=== PATIENT | male | born 1950 | race Caucasian/White ===

== ENCOUNTER 2016-07-25 17:28 | Day surgery (SDC) | payer OTHER, MEDICARE ==
[2016-07-25] MEDS ORDERED: IOPAMIDOL 370 (76%) 100 ML VIAL IV ONE ×2 (17:29)
[2016-07-25 18:10] LABS: ABSOLUTE NEUTROPHIL COUNT 4.2 K/mm3 (1.8-7.7); BASO % 0.4 % (0.2-1.0); EOS # 0.9 (0.0-0.5); EOS % 11.9 % (0.9-2.9); HEMOGLOBIN 13.3 gm/l (14.0-18.0); IMM NEUT% 0.4 % (0-1); LYMPH # 1.9 (1.0-4.8); LYMPH % 25.1 % (15-45); MEAN CELL VOLUME 87.4 fl (80.0-94.0); MEAN CORPUSCULAR HEMOGLOBIN 28.4 pg (27.0-31.0); MEAN CORPUSCULAR HGB CONC 32.4 g/dl (33.0-37.0); MEAN PLATELET VOLUME 8.9 fl (7.4-10.4); MONO # 0.6 (0.0-0.8); MONO % 8.2 % (4-12); PLATELET COUNT 266 K/mm3 (130-400); RED CELL DISTRIBUTION WIDTH 13.9 % (11.5-14.5)
[2016-07-25 18:21] LABS: INR 1.04; PROTHROMBIN TIME 10.9 SECONDS (9.3-11.4)
[2016-07-25 18:31] LABS: ALB/GLOB RATIO 1.3 (>1.0)
--- NOTE | 2016-07-25 19:39 | CT ---
[facility] Exam: CT head without contrast, cranial CTA and neck CTA Comparison:None Clinical history:Unable to swallow for the last 24 hours. Past history of CVA. Procedure: Helical CT using multidetector technique was applied to the head without contrast. Helical CT was then performed from the top of the head through the aortic arch during rapid intravenous administration of 90 cc of Isovue-370. MIP reconstructions were obtained on the CT scanner. An automated dose reduction technique was utilized to patient dose. Findings-CT head (without contrast): There is no shift of the midline structures. Atrophy is present. There is no mass, mass effect or hemorrhage. Cisterns are uneffaced. There is a large old right cerebellar infarct. Visualized paranasal sinuses and mastoid air cells are clear. There is no fracture. CTA head: Distal internal carotid arteries are minimally atherosclerotic and symmetric. The anterior and middle cerebral arteries are within normal limits. There is no anterior communicating artery aneurysm. The left vertebral artery is dominant. The distal right vertebral artery is occluded. The basilar artery is some mildly atherosclerotic and there are tandem less than 50% stenoses. The superior cerebellar arteries are intact. The right posterior cerebral artery arises from the basilar artery and the left arises from the anterior circulation which is a common normal variant. Posterior communicating arteries are not clearly identified. There is no aneurysm or vascular malformation. There is no filling defect or suspicious segmental narrowing within the cerebral arteries. CTA NECK: Aortic arch is normal caliber. There is a normal 3 great vessel arrangement. The origins of the great vessels are widely patent. The subclavian arteries show mild atherosclerosis but are more widely patent. The origins of the vertebral arteries are widely patent. The left vertebral artery is dominant. As stated above, the distal most aspect of the right vertebral artery is occluded. The common carotid arteries are symmetric. The carotid bifurcations are widely patent. There is minimal atherosclerosis of the internal carotid arteries. There is no stenosis or dissection. The visualized upper lobes are clear. The esophagus is abnormally dilated and there is a small air-fluid level. Thyroid glands submandibular glands and parotid glands are within normal limits. There is straightening of the normal cervical lordosis and severe degenerative disc disease at C5-6 and C6-7. Multilevel central canal stenosis and bony foraminal larynx is present. Multiple dental fillings are present. There is mild diffuse mucoperiosteal thickening of the left maxillary sinus Impression: 1. 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 Atrophy and chronic small vessel ischemic change. There is no mass, mass effect or hemorrhage. 3. 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 Left vertebral artery is dominant. There are tandem less than 50% stenoses of the basilar artery. 4. Mild atherosclerosis of the carotid system. There is no stenosis or dissection 5. Abnormal diffuse dilation of the visualized esophagus. This finding appears chronic. Correlate clinically. 6. Severe degenerative disc disease at C5-6 and C6-7. There is multilevel central canal stenosis and foraminal narrowing due to bony hypertrophy. 7. Mild diffuse mucoperiosteal thickening of the left maxillary sinus. Note: Initial findings were discussed with Dr. Flex Gallego at 1925 hours. Final report was uploaded to the electronic medical record system at 1935 hours
--- NOTE | 2016-07-25 20:52 | CT ---
Name: FELICITY MCCARTY Exam: CT chest, abdomen and pelvis with contrast Comparison: None Clinical history: Unable to swallow. Dilated esophagus on CTA neck. PROCEDURE: Helical CT using multidetector technique was applied to the chest, abdomen and pelvis during intravenous administration of 1 or cc of Isovue-370. Oral contrast was not given per ordering physician Findings: CT chest (contrast-enhanced): Heart is not enlarged. There is no pericardial effusion. Aorta is normal caliber. There is a normal 3 great vessel arrangement. Injection is made via the right. Limited views of the thyroid gland are normal. There is no suspicious axillary, mediastinal or hilar adenopathy. The upper one half of the esophagus is abnormally dilated. In the distal esophagus just above the GE junction, the esophagus is mildly dilated and contains a 2.8 cm oval filling defect. This could represent a polyp but swallowed material is favored. This abnormality is above the GE junction and at this time is not causing obstruction. There is a small amount of atelectasis in the lungs. There is mild multilevel degenerative disease of the spine. CT abdomen (contrast enhanced): Liver, gallbladder, pancreas, spleen, adrenal glands, kidneys, IVC and portal vein are within normal limits. There is atherosclerosis of a normal caliber aorta. Stomach is nearly empty. There is mild scattered stool within a nondilated colon. Small bowel is unremarkable. There is a small fat filled umbilical hernia. There is no free air, free fluid or suspicious adenopathy. Mild multilevel degenerative disease of the spine is present. CT pelvis (contrast enhanced): Bladder is normal size. Prostate is not enlarged. Seminal vesicles are symmetric. Small bowel, colon and appendix are within normal limits. Venous and arterial vascular calcifications are present. There is no free air, free fluid or suspicious adenopathy. Impression: 1. 2.8 cm oval filling defect in the distal esophagus just above the GE junction. Swallowed material is favored over polyp at this time. Direct visualization is recommended. There is no current esophageal obstruction. 2. Diffuse dilation of the upper half of the esophagus which appears chronic. 3. Small fat filled umbilical hernia 4. Atherosclerosis Note: The above report was uploaded to [facility]'s electronic medical records system at 2047 hours.
[2016-07-25 22:57] VITALS: BMI 37.3
[2016-07-25] MEDS ORDERED: FENTANYL 250 MCG/5 ML AMP ONE (23:41)
[2016-07-25] MEDS ORDERED: MIDAZOLAM HCL 1 MG/ML 2ML VIAL ONE (23:41)
[2016-07-26] MEDS ORDERED: LABETALOL HCL 5 MG/ML 20ML VIAL IV PRN (00:08)
[2016-07-26] MEDS ORDERED: HYDROMORPHONE HCL 1 MG/ML SYRINGE IV PRN (00:08)
[2016-07-26] MEDS ORDERED: MEPERIDINE 25 MG/ML SYRINGE IV PRN (00:08)
[2016-07-26] MEDS ORDERED: FENTANYL 100 MCG/2 ML VIAL IV PRN (00:08)
[2016-07-26] MEDS ORDERED: ATROPINE SULFATE 0.4 MG/1 ML VIAL IV PRN (00:08)
[2016-07-26] MEDS ORDERED: NALOXONE HCL 0.4 MG/ML VIAL IV PRN (00:08)
[2016-07-26] MEDS ORDERED: ONDANSETRON 4 MG/2ML 2 ML VIAL IV PRN (00:08)
[2016-07-26] MEDS ORDERED: LACTATED RINGERS 1,000 ML IV SCH (00:15)
[2016-07-26] MEDS ORDERED: LIDOCAINE Viscous 2% 15 ML UDCUP ONE (00:30)
[2016-07-26] MEDS ORDERED: PROPOFOL 20 ML IV ONE (00:30)
[2016-07-26 05:00] LABS: HELICOBACTER PYLORII DETECTION NEGATIVE (NEGATIVE)
[2016-07-26 06:31] VITALS: BP 122/75
--- NOTE | 2016-07-26 07:50 | RAD ---
History: Unable to swallow for the last 24 hours. Comparison: None. Technique: 2 views Findings: The soft tissue and bony structures are appropriate. The heart size is borderline enlarged. There is linear left basilar atelectasis or scarring suggested. No effusion or pneumothorax is seen. The hilar and mediastinal structures are intact. Impression: 1. Left basilar atelectasis or scarring.
--- NOTE | 2016-07-28 12:01 | SURGPATH ---
[facility] [address] [place] [id number] Patient Name: FELICITY MCCARTY MR#: [id number] : 1950 Gender: M Specimen #: [id number] Collected: 07/26/2016 Received: 07/27/2016 Reported: 07/28/2016 Submitting Phys: PIPPA VILLALTA Copy To Phys: [facility] TOBY SONG Clinical History / Pre-Operative Diagnosis: Food impaction, reflux esophagitis, rule out esophagitis Specimen Source / Surgical Procedure Performed: Esophagus biopsy 42 cm Interpretation: ESOPHAGUS, 42 CM, BIOPSY: - ACTIVE ESOPHAGITIS, NO INTESTINAL METAPLASIA OR DYSPLASIA (SEE COMMENT) Comment: The findings are consistent with reflux; however, the degree of eosinophilia within the esophagus also raises the possibility of eosinophilic esophagitis. Clinical correlation is recommended. Electronically Signed Out Lizbeth Shafer M.D. Gross Description: The specimen is received in formalin labeled with the patient's name and "esophagus biopsy 42 cm". The specimen consists of a few small fragments of white soft tissue aggregating to 0.5 x 0.5 x 0.1 cm. Submitted in toto in one cassette. NOLAN Ni Microscopic Description: Sections show squamous mucosa with active esophagitis. There is prominent spongiosis and eosinophils are seen throughout the epithelium. Eosinophils number up to 20 per high power field. There is no intestinal metaplasia or dysplasia. 1: [id number] K20.9
== END 2016-07-26 07:10 | disposition home or self-care (01) ==
LOC: ED 17:28 → SDC 21:37 → MS 21:54 → SDC 07-26 07:10
PROVIDERS: ATTEND Internal Medicine Gastroenterology
PROC: 0DB48ZX Excision of Esophagogastric Junction, Via Natural or Artificial Opening Endoscopic, Diagnostic (ICD-10-PCS; principal; 2016-07-25)
PROC: 0DB68ZX Excision of Stomach, Via Natural or Artificial Opening Endoscopic, Diagnostic (ICD-10-PCS; 2016-07-25)
DX: K21.0 Gastro-esophageal reflux disease with esophagitis (principal); K29.70 Gastritis, unspecified, without bleeding; K29.80 Duodenitis without bleeding
CPT/HCPCS: 85025; 80053; 87081; 85610; 71020; 74177; 70450; 71260; 70496; 70498; 99285 ×2; 93005; 43239; J3010; J2250; Q9967 ×2